=== PATIENT | male | born 1995 | race American Indian/Alaskan Native ===

== ENCOUNTER 2020-05-30 10:26 | Emergency (ER) | payer SELFPAY ==
[2020-05-30 10:56] VITALS: BP 132/91
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
== END 2020-05-30 13:50 | disposition home or self-care (01) ==
LOC: ED 10:26
DX: T74.22XA Child sexual abuse, confirmed, initial encounter (principal)
CPT/HCPCS: 99281